=== PATIENT | male | born 1985 | race African-American/Black ===

== ENCOUNTER 2021-08-11 12:43 | Emergency (ER) | payer OTHER ==
[~2021-08-11] VITALS: Ht 182.9 cm; Wt 155.0 kg
[2021-08-11 13:06] VITALS: BP 155/92
== END 2021-08-11 15:03 | disposition home or self-care (01) ==
LOC: EMS 12:47
DX: L02.415 Cutaneous abscess of right lower limb (principal)
CPT/HCPCS: 10060; 99283